=== PATIENT | female | born 1975 | race Two or more races ===

== ENCOUNTER 2019-01-12 19:54 | Emergency (ER) | payer OTHER ==
[~2019-01-12] VITALS: Ht 152.4 cm; Wt 68.0 kg
== END 2019-01-12 22:10 | disposition home or self-care (01) ==
LOC: ER 19:54
DX: S93.401A Sprain of unspecified ligament of right ankle, initial encounter (principal); X50.3XXA Overexertion from repetitive movements, initial encounter; Y93.89 Activity, other specified; Y92.89 Other specified places as the place of occurrence of the external cause; Y99.8 Other external cause status